=== PATIENT | male | born 1990 | race Caucasian/White ===

== ENCOUNTER 2021-07-08 13:53 | Inpatient (IN) | payer MEDICAID ==
[~2021-07-08] VITALS: Ht 165.1 cm; Wt 61.2 kg
--- NOTE | 2021-07-08 14:12 | NUR ---
BIBRA 860 FROM THE [facility] C/O L HAND REDNESS AND SWELLING. RATES BRYAN N 10/21. WILL CONTINUE TO MONITOR THE PATIENT.
--- NOTE | 2021-07-08 14:22 | NUR ---
IV LINE IS ESTABLISHED, BLOOD SPECIMEN COLLECTED AND SENT TO THE LAB. THE LINE IS SALINE LOCKED.
[2021-07-08] MEDS ORDERED: VANCOMYCIN 1 GM in IV D5W 250 ML IV ONE (14:30)
[2021-07-08] MEDS ORDERED: PIPERACILLIN /TAZOBACTAM 3.375 G in IV D5W 50 ML IV ONE (14:30)
--- NOTE | 2021-07-08 14:31 | NUR ---
MOVE SHEET SUBMITTED AND CALLED FOR MS BED.
[2021-07-08 15:13] LABS: BASOPHILS # (AUTO) 0.1 K/uL (0.0-0.2); BASOPHILS % (AUTO) 0.3 % (0.0-2.0); EOSINOPHILS % (AUTO) 0.8 % (0.0-6.0); HEMATOCRIT 43 % (39-51); HEMOGLOBIN 14.3 g/dL (13.5-17.5); LYMPHOCYTES # (AUTO) 1.2 K/uL (0.8-4.8); LYMPHOCYTES % (AUTO) 4.8 % (20.0-44.0); MEAN CORPUSCULAR HGB CONC 33 g/dl (31.0-36.0); MEAN CORPUSCULAR VOLUME 85 fL (80-96); MONOCYTES # (AUTO) 1.8 K/uL (0.1-1.30); MONOCYTES % (AUTO) 7.3 % (2.0-12.0); NEUTROPHILS # (AUTO) 21.5 K/uL (1.8-8.9); NEUTROPHILS % (AUTO) 86.8 % (43.0-81.0); PLATELET COUNT (AUTO) 562 K/uL (150-450); RED BLOOD CELL COUNT(AUTO) 5.09 MIL/uL (4.5-6.0); WHITE BLOOD COUNT (AUTO) 24.8 K/uL (4.3-11.0)
--- NOTE | 2021-07-08 15:21 | NUR ---
COVID PCR SWAB DONE AND SENT TO THE LAB
[2021-07-08 15:25] LABS: CALCIUM, SERUM 9.9 mg/dL (8.5-10.1); CARBON DIOXIDE 29 mmol/L (21-32); CHLORIDE 98 mmol/L (98-107); CREATININE 0.8 mg/dL (0.6-1.3); GLUCOSE 91 mg/dL (74-106); POTASSIUM 3.8 mmol/L (3.5-5.1); SODIUM SERUM 136 mmol/L (136-145); UREA NITROGEN, BLOOD 11 mg/dL (7-18)
[2021-07-08 15:31] LABS: ALANINE AMINOTRANSFERASE 19 U/L (12-78); ALBUMIN 3.3 g/dL (3.4-5.0); ALKALINE PHOSPHATASE 128 U/L (46-116); ASPARTATE AMINOTRANSFERASE 24 U/L (15-37); BILIRUBIN,DIRECT 0.1 mg/dL (0.0-0.2); BILIRUBIN,TOTAL 0.9 mg/dL (0.2-1.0); TOTAL PROTEIN, SERUM 8.2 g/dL (6.4-8.2)
--- NOTE | 2021-07-08 15:50 | NUR ---
URINE COLLECTED AND SENT TO THE LAB
[2021-07-08] MEDS ORDERED: IV NS 0.9% 1,000 ML BAG IV ONE ×2 (16:00)
[2021-07-08] MEDS ORDERED: CT SWABBABLE VALVE TRANS SET 1 EA INFUS.SET MC ONE (16:30)
[2021-07-08] MEDS ORDERED: IOHEXOL-300 100 ML VIAL IV ONE (16:30)
[2021-07-08] MEDS ORDERED: IV NS 0.9% 250 ML IV ONE (16:30)
--- NOTE | 2021-07-08 16:38 | NUR ---
THE PATIENT IS TAKEN TO CT VIA RNEY
--- NOTE | 2021-07-08 16:45 | NUR ---
THE PATIENT IS BACK FROM CT VIA RFRUITA.
--- NOTE | 2021-07-08 16:55 | NUR ---
Patient refused CT scan on the CT table. Pt is claustrophobic, multiple attempts. patient stated that he already had the same scan before. Patient is not cooperative with scan keeps moving.
--- NOTE | 2021-07-08 17:14 | NUR ---
THE PATIENT IS TAKEN TO CT VIA RNEY
--- NOTE | 2021-07-08 17:31 | NUR ---
THE PATIENT IS BACK FROM CT IN STABLE CONDITION.
--- NOTE | 2021-07-08 17:46 | NUR ---
CALLED [facility] FOR READ.
--- NOTE | 2021-07-08 18:20 | NUR ---
AGAIN CALLED [facility] FOR READ
[2021-07-08] MEDS ORDERED: MORPHINE SULFATE INJ 2 MG/ML DISP.SYRIN IV PRN (18:30)
[2021-07-08] MEDS ORDERED: MAGNESIUM HYDROXIDE 30 ML UDC PO PRN (18:30)
[2021-07-08] MEDS ORDERED: HYDROCODONE/APAP 5/325MG TABLET PO PRN (18:30)
[2021-07-08] MEDS ORDERED: ONDANSETRON HCL/PF 4 MG/2 ML VIAL IVP PRN (18:30)
[2021-07-08] MEDS ORDERED: MAG HYDROX/AL HYDROX/SIMETH 30 ML UDC PO PRN (18:30)
[2021-07-08] MEDS ORDERED: ACETAMINOPHEN 325 MG TABLET PO PRN (18:30)
[2021-07-08] MEDS ORDERED: Z GUARD REMEDY 2 OZ OINT TP PRN (18:30)
--- NOTE | 2021-07-08 18:43 | NUR ---
CALLED [facility]ENNA DR. AVALOS IS ASSIGNED AND WILL READ.
--- NOTE | 2021-07-08 19:24 | NUR ---
CALLING [facility] TO FOLLOWUP ON READ SPEAKING WITH ABBIE FIVE MORE MINS.
--- NOTE | 2021-07-08 19:29 | NUR ---
REPORT GIVEN TO NURSE LOREDO FOR [facility]
--- NOTE | 2021-07-08 19:44 | NUR ---
CALLED FOR REPORT , ESTEVAN WILL CALL ME BACK IN A FEW MIN
--- NOTE | 2021-07-08 20:06 | NUR ---
PT TRANSPORTED TO [facility] WITH ALL PT BELONGINGS AND PAPERWORK WITHOUT INCIDENT.
[2021-07-08 20:12] VITALS: BP 137/75
--- NOTE | 2021-07-08 20:12 | NUR ---
GUN REPAIR CLERK NOTE RECEIVED PATIENT VIA [employer]. A/OX3, MUMBLING WHEN HE SPEAKS. DOES NOT WANT TO DISCUSS ANYTHING ABOUT HIS PAST MEDICAL HISTORY. STATED NO TO EVERYTHING AND EXPRESSED HE DOESN'T WANT TO TALK ABOUT IT. TOLERATING ROOM AIR. RESPIRATIONS ARE EVEN AND UNLABORED. NO S/S SOB NOTED. PATIENT IS SCREAMING BUT HE IS MORE CONCERNED THAT HIS HAND IS GOING TO BE CUT OFF AND THAT WE WILL BE ABLE TO SAVE HIS HAND, EXPLAINED TO PATIENT ABOUT ANTIBIOTICS. IN NO APPARENT DISTRESS. IV ACCESS IN RAC#20 PATENT AND SALINE LOCKED. PATIENT ALLOWED TO TAKE A PHOTO OF HAND BUT DID NOT WANT TO REMOVE ANY OTHER CLOTHING. PHOTO TAKEN AND PLACED IN CHART. INITIAL PHYSICAL ASSESSMENT COMPLETED AT THIS TIME. MANAGER STEEL OBTAINED VITAL SIGNS AND COMPLETED BELONGING LIST. BED IS LOW AND LOCKED, HOB ELEVATED IN SEMI FOWLERS, SIDE RIALS UP X2, CALL LIGHT WITHIN REACH, EXPLAINED USE.
[2021-07-08] MEDS ORDERED: PIPERACILLIN /TAZOBACTAM 3.375 G VIAL IV ONE (21:32)
[2021-07-08] MEDS: ZOSYN IVPB 3.375 G in IV D5W 50ml IV SCH (21:32)
[2021-07-09] MEDS ORDERED: VANCOMYCIN 1 GM in IV D5W 250ml IV SCH
[2021-07-09] MEDS ORDERED: VANCOMYCIN 1 GM VIAL ONE (01:05)
[2021-07-09] MEDS ORDERED: PIPERACILLIN /TAZOBACTAM 3.375 G VIAL IV ONE (03:31)
[2021-07-09] MEDS: ZOSYN IVPB 3.375 G in IV D5W 50ml IV SCH ×5 (03:47→22:33)
[2021-07-09 04:00] VITALS: BP 136/72
--- NOTE | 2021-07-09 06:40 | NUR ---
RN NOTE CALL PHARMACY TO INFORM THEM THAT THE DOSE FOR 0600 ZOSYN 3.375 WAS NOT GIVEN D/T FIRST DOSE WAS SCHEDULED FOR 2030, AND NEXT DOSE SHOULD BE GIVEN Q6HR STATED ON ORDER AND NOT 0000 IT WAS SCHEDULED IN THE EMAR. INFORMED THE 000O DOSE GIVEN AT 0330 , 6 HOURS AFTER PREVIOUS DOSE AND IF THEY COULD CHANGE THE ORDER FOR ZOSYN THAT WAS SCHEDULED FOR 0600. ORDER WAS ENTERS FOR ZOSYN AT 1000. THEREFORE NONADMINSITERED 0600 BECAUSE FORGOT TO DC.
--- NOTE | 2021-07-09 07:45 | NUR ---
RN OPENING NOTES RECEIVED PATIENT AWAKE, ALERT/OREINTED X 3. ABLE TO MAKE NEEDS KNOWN. PATIENT ON ROOM AIR, BREATHING EVEN AND UNLABORED. NO SOB OR ANY RESPIRATORY DISTRESS NOTED. NOTED WITH LEFT HAND CELLULITIS, WOUND CONSULT ORDER IN PLACE. IV ACCESS ON RIGHT AC #20, PATENT AND INTACT. ALL SAFETY MEASURES IN PLACE. BED LOCKED AND IN LOWEST POSITION WITH SIDE RAILS UP. CALL LIGHT WITHIN REACH. WILL CONTINUE TO MONITOR.
--- NOTE | 2021-07-09 07:53 | NUR ---
RN CLOSING NOTE PATIENT RESTING IN BED. A/OX3. REMAINS TOLERATING ROOM AIR. NO RESP DISTRESS. NO C/O PAIN. NO DISTRESS. RAC#20 MAINTAINED. BED REMAINS LOW AND LOCKED, HOB ELEVATED IN SEMI FOWLERS, SIDE RIALS UP X2, CALL LIGHT WITHIN REACH, EXPLAINED USE. PATIENT REFUSED AM LABS. WILL ENDORSE TO ONCOMING SHIFT.
[2021-07-09 08:00] VITALS: BP 124/70
[2021-07-09] MEDS: VANCOMYCIN 1 GM in IV D5W 250ml IV SCH ×2 (08:17→17:19)
[2021-07-09 09:25] LABS: BASOPHILS % (AUTO) 0.2 % (0.0-2.0); EOSINOPHILS % (AUTO) 0.9 % (0.0-6.0); HEMATOCRIT 40 % (39-51); LYMPHOCYTES % (AUTO) 6.2 % (20.0-44.0); MEAN CORPUSCULAR HGB CONC 33 g/dl (31.0-36.0); MEAN CORPUSCULAR VOLUME 85 fL (80-96); MONOCYTES # (AUTO) 0.8 K/uL (0.1-1.30); MONOCYTES % (AUTO) 4.7 % (2.0-12.0); NEUTROPHILS # (AUTO) 14.3 K/uL (1.8-8.9); PLATELET COUNT (AUTO) 487 K/uL (150-450); RED BLOOD CELL COUNT(AUTO) 4.68 MIL/uL (4.5-6.0); WHITE BLOOD COUNT (AUTO) 16.2 K/uL (4.3-11.0)
--- NOTE | 2021-07-09 09:26 | NUR ---
SS Consult requested for homelessness. SW will follow up at a later time.
--- NOTE | 2021-07-09 10:29 | NUR ---
WOUND CARE CONSULT: REVIEWED CHART,NURSING DOCUMENTATION AND PHOTO WHICH INDICATES LEFT HAND SWELLING, PRESENT ON ADMISSION. DEFER TO PMD FOR SWELLING. RECOMMENDATIONS DISCUSSED WITH NURSING STAFF FOR SKIN PROTECTION.
[2021-07-09 10:49] LABS: CALCIUM, SERUM 9.2 mg/dL (8.5-10.1); CREATININE 0.9 mg/dL (0.6-1.3); MAGNESIUM 2.1 mg/dL (1.8-2.4); POTASSIUM 3.8 mmol/L (3.5-5.1)
[2021-07-09 16:00] VITALS: BP 132/78
--- NOTE | 2021-07-09 18:42 | NUR ---
RN CLOSING NOTES PATIENT REMAINS IN STABLE CONDITION THROUGHOUT SHIFT. PATIENT ALERT/ ORIENTED X 3. BREATHING EVEN AND UNLABORED ON ROOM AIR WITH SAT 98%, NO SOB OR ANY RESPIRATORY DISTRESS NOTED. PATIENT DENIES PAIN, DISCOMFORT. ALL DUE MEDS GIVEN ORDERED. KEPT PATIENT DRY, CLEAN AND COMFORTABLE. ALL SAFETY MEASURES IN PLACED. BED LOCKED, IN LOWEST POSITION WITH SIDE RAILS UP. CALL LIGHT WITHIN REACH. WILL ENDORSE TO NEXT SHIFT FOR CONTINUITY OF CARE.
--- NOTE | 2021-07-09 19:25 | NUR ---
RN OPENING NOTES PATIENT RECEIVED IN BED ALERT AND VERBALLY RESPONSIVE RESPIRATORY EVEN AND UNLABORED, NO SIGN AND SYMPTOMS OF SOB OR DISTRESS, PATIENT IS ON ROOM AIR, SAT 97%, IV LINE PLACE ON THE RAC #20. SAFETY MEASURES IN PLACE BED ALARM ON LOCKED AND IN LOWEST POSITION CALL LIGHT WITHIN REACH WILL CONTINUE TO MONITOR
[2021-07-09 20:00] VITALS: BP 127/74
[2021-07-10] MEDS: VANCOMYCIN 1 GM in IV D5W 250ml IV SCH ×3 (01:26→16:45)
[2021-07-10 04:00] VITALS: BP 131/92
[2021-07-10] MEDS: ZOSYN IVPB 3.375 G in IV D5W 50ml IV SCH ×4 (04:17→21:03)
--- NOTE | 2021-07-10 05:18 | NUR ---
RN NOTES PATIENT REFUSED BLOOD DRAW, OFFERED 3X, EXPLAINED RISK AND BENEFITS, STILL REFUSED. WILL ENDORSED TO NEXT SHIFT.
--- NOTE | 2021-07-10 06:46 | NUR ---
RN CLOSING NOTES PATIENT REMAIN STANLE THROUGH OUT THE SHIFT, NO S/S OF WITHDRAWAL NOTED. RESPIRATORY EVEN AND UNLABORED, NO SIGN AND SYMPTOMS OF SOB OR DISTRESS, PATIENT IS ON ROOM AIR, SAT 97%, IV LINE PLACE ON THE RAC #20. ALL DUE MEDS GIVEN ORDERED. REFUSED BLOOD DRAW, OFFERED 3X EXPLAINED RISK AND BENEFITS STILL REFUSED. SAFETY MEASURES IN PLACE BED ALARM ON LOCKED AND IN LOWEST POSITION CALL LIGHT WITHIN REACH WILL CONTINUE TO MONITOR
--- NOTE | 2021-07-10 07:36 | NUR ---
RN MORNING NOTE PT RECEIVED IN BED SLEEPING. PT IS ON RA TOLERATING WELL WITH NO SIGNS OF DISTRESS OR LABORED BREATHING. PT ENDORSED TO BE A/0X3 AND ANXIOUS. PT IS AMBULATORY AND ON REGULAR DIET WITH IV ACCESS R AC 22G. BED IS LOCKED IN LOWEST POSITION X2 GUARD RAILS RAISED, CALL BAUM IS WITHIN REACH, AND ALL HOSPITAL SAFETY PRECAUTIONS ARE IN PLACE. WILL CONTINUE TO MONITOR THIS SHIFT.
[2021-07-10 11:20] LABS: CALCIUM, SERUM 9.4 mg/dL (8.5-10.1); CREATININE 0.8 mg/dL (0.6-1.3); POTASSIUM 4.1 mmol/L (3.5-5.1)
--- NOTE | 2021-07-10 11:56 | NUR ---
"SW Consult: SW consult requested for patient possible homelessness and substance abuse. SW conducted a phone assessment with patient who is in [facility] with possible COVID +. Patient was brought in due to cellulitis. Patient presents alert and oriented x3 (self,place,time). Patient reported he is unsure why he was brought to the hospital and has possible infection. Patient reported that he has been homeless since the age of 19. Patient reported that he has been living on the streets [place]. Patient reported he has no support. Patient expressed that he has history of mental illness but is unsure of his diagnosis. 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 SW assessed for suicidal or homicidal, pt denied. SW assessed any hallucinations visual/auditory, pt denied. SW assessed for substance abuse and pt expressed that he has been drinking since the age of 21, he has been drinking a few times a week and smokes cigarettes. Pt denied any use of drugs. SW offered pt resources and pt was accepting of shelters and substance abuse referrals. SW placed homeless waiver form and resources in patient's chart. Discharge Plan: Pt would want to be discharged to walk-in skilled nursing provided for pt. Walk-in Shelters: 1) [facility] [address] [address] 2) [facility] ([phone]) located at [address] [address] 3)[facility] ([phone]) located at [address] [place], [place] [id number] Substance Abuse resources provided included: [facility] Substance Abuse Self-Helpline (SAS) ; CRI -HELP [address] [facility] [place] [phone] ; [facility] [address] [facility] [address] ; [facility] Rehabilitation Program [address] [facility] [address] ; [facility] [place] [address] [facility] [phone] ; [facility] [address] [facility] [address] ; [facility] [address] [facility] [phone] ; [facility] Substance Abuse Helpline(SAS)-[facility] ; [facility] ; [place] [place]; [facility] [place]; Cri[facility]Help [place]; [facility] [place]; [facility]; [facility]; [facility], [facility]. [facility]; Alcoholics Anonymous -SFV; Lo-Jkpc-Ozpgezn ; Marijuana Anonymous -SFV; Narcotics Anonymous www.na.org; Year-round shelters: [facility] [address] [place], [place] [phone] ; [facility] [place] [address] [place] [address]; [facility] [id number] [facility] [address] Winter Shelters: [place] Post Provider: [facility] [place] Address: [address] [place], [address] # of Beds: 47 Population Served: [facility] 6 | [facility] Leah Erickson [place] Provider: [facility] Address: [address], [address] # of Beds: 66 Population Served: Patria Good.Co [place] Provider: First to Serve Address: [address] [facility], [address] # of Beds: 56 Population Served: Patria Post Provider: /[facility] Address: [address] [facility], [address] # of Beds: 49 Population Served: Coed SPA 8 | Selma Fadia Post Provider: First to Serve Address: [address] [address] # of Beds: 37 Population Served: Coed Hygiene: [facility]: [address] [place] ; [facility] [address] [facility] ; [facility] [address], [place] . Food Resources: [place] [facility] at [facility]- [address] [facility]; Meet Each Need with Dignity ([facility]) [address] [facility]; [facility] Food Pantry [address] [facility]; [facility] 4284 [facility]. Mental Health resources provided: [facility] [address] [place], [place] [address] ; [facility] Mental Health [employer] [address] [facility] [address], [place], [place] [phone] ; [facility] [address] [place] [address] ; [facility] [address] [place], [place] [id number] Healthcare Clinics: [facility] [address] [facility], [address] [place]. [place] ; [facility] [address] [facility] [address] [place] [address]; [facility] [address] [facility]. [place] [phone] Counseling--Outpatient [facility] [address] [facility], [place] [address] (Specializes in in-depth psychotherapy for emotional distress: anxiety, depression, interpersonal conflicts, life transitions, childhood abuse) [facility] [address] [place] [address] (Assist with solving problem marital difficulties, separation & divorce, aging parents, & grief, chronic & terminal illness) [facility] [address] [place] [address] (Deal with loss & grief, anxiety, marital difficulties) Homebound/Mental Health Services [address] [address] [facility] [address] [place] [address] (Provide in-home mental services to people who are incapable of leaving their homes) [facility] Needs of the Elderly Senior Service/Resource Center [address] [place] [address] [facility] [address] [place], [place] [phone] PSYCHIATRIC OUTPATIENT SERVICES [facility] Partial Hospitalization and Intensive Outpatient Program (Managed Care and [place] Only)[address] [facility] [facility] [phone] [facility] Partial Hospitalization and Outpatient Program [address] [place] [place], [place] [phone] [facility] Hum[address] [place] [place] [address]; [phone] [facility] [place] Partial Hospitalization and Outpatient Program [address] [address] MccormackSHELBIANA, [phone] "
[2021-07-10 12:00] VITALS: BP 144/74
--- NOTE | 2021-07-10 18:50 | NUR ---
RN CLOSING NOTE PT CONTINUES TO LAY IN BED COMFORTABLY AT THIS TIME. PT IS ON RA TOLERATING WELL WITH NO SIGNS OF DISTRESS OR LABORED BREATHING. PT REFUSED PM VITALS. PT IS A/0X3 AND ANXIOUS. PT IS AMBULATORY AND ON REGULAR DIET WITH IV ACCESS R AC 22G. BED IS LOCKED IN LOWEST POSITION X2 GUARD RAILS RAISED, CALL BAUM IS WITHIN REACH, AND ALL HOSPITAL SAFETY PRECAUTIONS ARE IN PLACE. WILL ENDORSE TO POLL CLERK NURSE FOR [facility].
[2021-07-10 20:00] VITALS: BP 147/79
[2021-07-11] MEDS: VANCOMYCIN 1 GM in IV D5W 250ml IV SCH ×3 (01:46→16:56)
[2021-07-11 04:00] VITALS: BP 129/74
[2021-07-11] MEDS: ZOSYN IVPB 3.375 G in IV D5W 50ml IV SCH ×4 (04:00→21:35)
--- NOTE | 2021-07-11 07:44 | NUR ---
RN MORNING NOTE PT OBSERVED SLEEPING IN BED. PT IS A/OX4 AND ANXIOUS. PT IS MS AND ON REGULAR DIET. IV ACCESS R AC22G PATENT AND FLUSHING WELL. PT IS ON RA AND TOLERATING WELL WITH NO SIGNS OF DISTRESS OR LABORED BREATHING. BED IS LOCKED IN LOWEST POSITION X2 GUARD RAILS UP, CALL LIGHT IS WITHIN REACH, ALL HOSPITAL PROTOCOLS ARE IN PLACE. WILL CONTINUE TO MONITOR THIS SHIFT.
--- NOTE | 2021-07-11 08:37 | NUR ---
COVID PCR NEGATIVE DR. CELIS NOTIFIED.
--- NOTE | 2021-07-11 11:00 | NUR ---
RN NOTE REPORT GIVEN TO PAULINE HERRING FOR [facility]. PT IS STABLE AT THIS TIME.
[2021-07-11 12:18] LABS: BASOPHILS # (AUTO) 0.1 K/uL (0.0-0.2); BASOPHILS % (AUTO) 0.4 % (0.0-2.0); EOSINOPHILS % (AUTO) 1.5 % (0.0-6.0); HEMATOCRIT 42 % (39-51); LYMPHOCYTES # (AUTO) 1.6 K/uL (0.8-4.8); LYMPHOCYTES % (AUTO) 10.3 % (20.0-44.0); MEAN CORPUSCULAR HGB CONC 34 g/dl (31.0-36.0); MEAN CORPUSCULAR VOLUME 84 fL (80-96); MONOCYTES # (AUTO) 1.1 K/uL (0.1-1.30); MONOCYTES % (AUTO) 7.1 % (2.0-12.0); NEUTROPHILS # (AUTO) 12.2 K/uL (1.8-8.9); NEUTROPHILS % (AUTO) 80.7 % (43.0-81.0); PLATELET COUNT (AUTO) 680 K/uL (150-450); RED BLOOD CELL COUNT(AUTO) 4.99 MIL/uL (4.5-6.0); WHITE BLOOD COUNT (AUTO) 15.1 K/uL (4.3-11.0)
[2021-07-11 13:17] LABS: CALCIUM, SERUM 8.9 mg/dL (8.5-10.1); CREATININE 1.1 mg/dL (0.6-1.3); MAGNESIUM 2.3 mg/dL (1.8-2.4); PHOSPHORUS 4.4 mg/dL (2.5-4.9); POTASSIUM 4.1 mmol/L (3.5-5.1)
--- NOTE | 2021-07-11 17:14 | NUR ---
RN NOTES RECEIVED CALL FROM PHARMACY REGARDING PATIENT'S VANCO TROUGH RESULT OF 33. PER PHARMACY, RESULT MAY BE INACCURATE BECAUSE THE TIMING OF THE DRAW WAS LATE D/T PATIENT'S REFUSAL; OK TO GIVE 1700 DOSE PATIENT WILL HAVE ANOTHER VANCO TROUGH LATER TONIGHT. WILL CONTINUE TO MONITOR.
[2021-07-11 20:00] VITALS: BP 115/70
--- NOTE | 2021-07-11 23:10 | NUR ---
RN NOTES, TRANSFERRED PATIENT O 3W ROOM 316-2 ENDORSED PATIENT TO MENDY RN FOR CONTINUATION OF CARE, PATIENT IN STABLE CONDITION, AT RA WITH STABLE VITAL SIGNS.
--- NOTE | 2021-07-11 23:15 | NUR ---
TRANSFER NOTES PT TRANSFERRED IN BED, AWAKE. AOx4 ABLE TO MAKE NEEDS KNOWN. ON RA AND TOLERATING WELL. NO SOB NOTED. NO S/SX OF RESPIRATORY DISTRESS NOTED. IV ACCESS IN RAC #22. IV ACCESS IS INTACT, PATENT, AND FLUSHING WELL. SAFETY PRECAUTIONS IN PLACE: BED IN LOWEST, LOCKED POSITION, BRAKES ON, AND SIDERAILS UPx2. TABLE AND CALL LIGHT WITHIN REACH. VS WNL. WILL CONTINUE TO MONITOR.
[2021-07-12] VITALS: BP 153/86
[2021-07-12] MEDS: VANCOMYCIN 1 GM in IV D5W 250ml IV SCH ×2 (00:57→09:00)
--- NOTE | 2021-07-12 01:52 | NUR ---
NON-ADMIN STOCK MEDICATIONS.
[2021-07-12] MEDS: ZOSYN IVPB 3.375 G in IV D5W 50ml IV SCH ×4 (03:51→23:05)
--- NOTE | 2021-07-12 06:52 | NUR ---
MS RN CLOSING NOTES PT IN BED, ASLEEP, AWAKENS TO VERBAL STIMULI. AOx4, ABLE TO MAKE NEEDS KNOWN. ON RA AND TOLERATING WELL. NO SOB NOTED. NO S/SX OF RESPIRATORY DISTRESS NOTED. IV ACCESS IN RAC #22. IV ACCESS IS INTACT, PATENT, AND FLUSHING WELL. ALL NEEDS MET. PT KEPT CLEAN AND DRY. SAFETY PRECAUTIONS IN PLACE: BED IN LOWEST, LOCKED POSITION, BRAKES ON, AND SIDERAILS UPx2. TABLE AND CALL LIGHT WITHIN REACH. WILL ENDORSE TO ONCOMING SHIFT FOR [facility].
--- NOTE | 2021-07-12 07:30 | NUR ---
MS RN OPENING NOTES RECEIVED PATIENT RESTING ON BED AND A/O X4. ON ROOM AIR TOLERATING WELL. NO SOB NOTED. NOT IN DISTRESS. WITH NO COMPLAINTS OF PAIN OR DISCOMFORT AT THIS TIME. WITH IV ACCESS AT RIGHT AC G22, SALINE LOCKED, PATENT AND INTACT. SAFETY MEASURES IN PLACED. CALL LIGHT WITHIN REACH. BED ON LOWEST LOCKED POSITION, SIDE RAILS UP X2. WILL CONTINUE TO MONITOR.
[2021-07-12 08:00] VITALS: BP 141/66
--- NOTE | 2021-07-12 13:40 | NUR ---
RN NOTE PHARMACIST NAMED ISIAH CALLED AND INFORMED THAT PATIENT'S VANCO TROUGH YESTERDAY 07/11/21 WAS 33 VANCO IV DOSE WAS DECREASED 1G TO 0.75G AND ORDERED TO GIVE THE DECREASED DOSE OF VANCO..
[2021-07-12] MEDS ORDERED: LIDOCAINE 2%-EPI 1:100,000 30 ML VIAL TP STA (13:55)
[2021-07-12] MEDS: VANCOMYCIN HCL 0.75 GM in IV D5W 250 ML IV SCH ×2 (15:30→23:33)
[2021-07-12 16:00] VITALS: BP 142/65
[2021-07-12 17:41] LABS: BASOPHILS # (AUTO) 0.1 K/uL (0.0-0.2); BASOPHILS % (AUTO) 0.3 % (0.0-2.0); EOSINOPHILS % (AUTO) 1.3 % (0.0-6.0); HEMATOCRIT 42 % (39-51); MEAN CORPUSCULAR HGB CONC 33 g/dl (31.0-36.0); MEAN CORPUSCULAR VOLUME 83 fL (80-96); MONOCYTES % (AUTO) 6.1 % (2.0-12.0); NEUTROPHILS % (AUTO) 80.3 % (43.0-81.0); PLATELET COUNT (AUTO) 681 K/uL (150-450); RED BLOOD CELL COUNT(AUTO) 5.06 MIL/uL (4.5-6.0); WHITE BLOOD COUNT (AUTO) 16.2 K/uL (4.3-11.0)
[2021-07-12 18:11] LABS: CALCIUM, SERUM 8.5 mg/dL (8.5-10.1); CREATININE 0.8 mg/dL (0.6-1.3)
--- NOTE | 2021-07-12 19:00 | NUR ---
spoke to the pharmacist about the trough being33 and should I give the Vanco that is ordered for 2299 she said YES that the vanco trough was not a true reading her name Martha
--- NOTE | 2021-07-12 19:00 | NUR ---
MS RN CLOSING NOTES NOTES PATIENT RESTING ON BED AND A/O X4. ON ROOM AIR TOLERATING WELL. NO SOB NOTED. NOT IN DISTRESS. WITH NO COMPLAINTS OF PAIN OR DISCOMFORT AT THIS TIME. WITH IV ACCESS AT RIGHT AC G22, SALINE LOCKED, PATENT AND INTACT. DUE MEDS GIVEN. SAFETY MEASURES IN PLACED. CALL LIGHT WITHIN REACH. BED ON LOWEST LOCKED POSITION, SIDE RAILS UP X2. WILL ENDORSE TO NEXT SHIFT FOR [facility].
[2021-07-12 20:12] LABS: BAND % (MANUAL) 1 % (0.0-5.0); EOSINOPHILS % (MANUAL) 1 % (0-4); LYMPHOCYTES % (MANUAL) 11 % (16-48); MONOCYTES % (MANUAL) 3 % (0-11.0); NEUTROPHILS % (MANUAL) 84 (42-76)
[2021-07-13] MEDS: ZOSYN IVPB 3.375 G in IV D5W 50ml IV SCH ×2 (03:35→10:00)
--- NOTE | 2021-07-13 04:29 | NUR ---
ALERT AND ORIENTATED X4 NOTED DRESSING LEFT HAND CDI FINGERS WARM S/P I N D HE IS TOLERATING THE ATBs BED ALARM IN USE USES THE URINAL FREQ EATING SNACKS
--- NOTE | 2021-07-13 08:00 | NUR ---
RN OPENING NOTES PATIENT AWAKE IN BED RESTING, AWAKE. A/O X4. NO S/S OF PAIN NOTED AT THIS TIME. ON ROOM AIR, NO DISTRESS OR SHORTNESS OF BREATH NOTED. IV RIGHT AC #22G, INTACT AND PATENT. FALL AND SAFETY MEASURES IN PLACE, BED ALARM ON, BED IN LOW AND LOCK POSITION, CALL LIGHT AND TABLE WITHIN EASY REACH, SIDE RAILS UP X2. WILL CONTINUE TO MONITOR.
[2021-07-13] MEDS ORDERED: SULF1TAB48 PO (09:18)
[2021-07-13] MEDS ORDERED: VANCOMYCIN HCL 0.75 GM in IV D5W 250 ML IV SCH (13:00)
--- NOTE | 2021-07-13 13:00 | NUR ---
FELL CUTTER NOTES PATIENT WAS DISCHARGE IN MEDICAL STABLE CONDITIONS. A/O X4. V/S TAKEN, STABLE AND RECORDED. NO IV ACCESS. SKIN ASSESSMENT WAS NOT DONE PATIENT REFUSED ONLY PICTURES OF HIS LEFT HAND WAS TAKEN AND DRESSING WAS CHANGED. NAME ARM BAND REMOVED. ALL BELONGINGS CHECKED AND SIGNED. HEALTH TEACHING AND DISCHARGE INSTRUCTIONS GIVEN, VERBALIZED UNDERSTANDING. PATIENT LEFT UNIT AMBULATING WITH NO SIGNS OF DISTRESS, ACCOMPANIED BY RN TO THE LOBBY. CHARGE NURSE AWARE OF DISCHARGED.
== END 2021-07-13 11:00 | disposition home or self-care (01) | DRG 720 ==
LOC: ER 13:56 → MEDSG1 19:29 → MED 07-11 23:08
PROVIDERS: ADMIT Internal Medicine; ATTEND Internal Medicine
PROC: 0K9 Muscles, Drainage (ICD-10-PCS; principal; 2021-07-12)
DX: A41.9 Sepsis, unspecified organism (principal); E43 Unspecified severe protein-calorie malnutrition; E87.2 Acidosis; L03.114 Cellulitis of left upper limb; L02.512 Cutaneous abscess of left hand; Z59.00 Homelessness unspecified; Z20.822 Contact with and (suspected) exposure to COVID-19; D75.839 Thrombocytosis, unspecified; F19.10 Other psychoactive substance abuse, uncomplicated
CPT/HCPCS: 36415; 73130-TC; 73201-TC; 80048-TC; 80076-TC; 80202-TC; 83605-TC; 83735-TC; 84100-TC; 85025-TC; 87040-TC; 87070-TC; 87081-TC; 93971-TC; A6253; A6407; G0378; G0480; J2543; J3370; J3490; J7030; J7040; J7050; J7060; Q9967; U0003

== ENCOUNTER 2021-08-02 08:37 | Emergency (ER) | payer SELFPAY ==
[~2021-08-02] VITALS: Ht 165.1 cm; Wt 61.2 kg
[~2021-08-02 08:37] MED LIST: SULF1TAB48 PO
[2021-08-02 08:46] VITALS: BP 134/101
--- NOTE | 2021-08-02 10:15 | NUR ---
RING REMOVED BY CORPORATION SECRETARY. WELL TOLERATED BY THE PT. NO VISIBLE WOUND NOTED.
--- NOTE | 2021-08-02 10:26 | NUR ---
Patient discharged to home in stable condition. Written and verbal after care instructions given. Patient verbalizes understanding of instruction.
== END 2021-08-02 10:26 | disposition home or self-care (01) ==
LOC: ER 08:40
DX: S60.444A External constriction of right ring finger, initial encounter (principal); Z59.00 Homelessness unspecified; W49.04XA Ring or other jewelry causing external constriction, initial encounter; Y93.89 Activity, other specified; Y92.89 Other specified places as the place of occurrence of the external cause; Y99.8 Other external cause status